=== PATIENT | female | born 1975 | race Caucasian/White ===

== ENCOUNTER → 2016-07-13 | Outpatient (CLI) | payer OTHER ==
[2014-10-04 10:55] VITALS: BP 138/87
[~2016-07-13] MED LIST: AMLO10TA4 PO; CITA20TA5 PO; DOCU-150 PO; OXYC-323 PO; PHEN37.598 PO
--- NOTE | 2016-07-13 11:56 | RAD ---
DATE: 07/13/2016 EXAM: MAMMO KRISTIN SCREENING BILATERAL HISTORY: Screening COMPARISON: None. This is a baseline study This study was interpreted with the benefit of Computerized Aided Detection (CAD). FINDINGS: Breast Density: SCATTERED The breast parenchyma shows scattered fibroglandular densities. Breast parenchyma level B. There is a slightly lobulated 1 cm mass at the 12:00 position of the right breast. Targeted ultrasound is advised. A smaller well-defined mass is seen in the upper outer aspect of the right breast most compatible with intramammary lymph node. In the left breast there is a well-defined small approximately 4 mm nodule centrally in the breast. [facility]one compression imaging rolled cc views and an ML view are advised. Targeted ultrasound is also suggested. IMPRESSION: 1 cm nodule in the right breast. Targeted ultrasound advised. In the left breast there is a suggested nodule centrally in the breast. Additional imaging and targeted ultrasound advised as outlined above BI-RADS CATEGORY: 0 INCOMPLETE: NEED ADDITIONAL IMAGING EVAULATION AND/OR PRIOR MAMMOGRAMS FOR COMPARISON RECOMMENDED FOLLOW-UP: ADD ADDITIONAL IMAGING PQRS compliance statement: Patient information was entered into a reminder system with a target due date soon for the next mammogram. Mammography is a sensitive method for finding small breast cancers, but it does not detect them all and is not a substitute for careful clinical examination. A negative mammogram does not negate a clinically suspicious finding and should not result in delay in biopsying a clinically suspicious abnormality. "Our facility is accredited by the [employer] Mammography Program."
== END | disposition home or self-care (01) ==
LOC: MAMMO 09:42
PROVIDERS: ATTEND Nurse Practitioner Family
DX: Z12.31 Encounter for screening mammogram for malignant neoplasm of breast (principal); N63 Unspecified lump in breast
CPT/HCPCS: 77063; G0202; 77067

== ENCOUNTER → 2016-07-17 | Outpatient (CLI) | payer OTHER ==
[2014-10-04 10:55] VITALS: BP 138/87
--- NOTE | 2016-07-17 13:23 | RAD ---
DATE: 07/17/2016 EXAM: DIGITAL DIAGNOSTIC LT, BREAST BILATERAL HISTORY: Suspicious screening study COMPARISON: 07/13/2016 This study was interpreted with the benefit of Computerized Aided Detection (CAD). The breast parenchyma shows scattered fibroglandular densities. Breast parenchyma level B. FINDINGS: Additional views of the left breast confirm the presence of a small 8 mm nodule in the left breast located just medial and superior to the midline at the 9-10:00 location. Its margins are fairly smooth as best delineated on the tomograms from the 07/13/2016 study. No microcalcifications are seen. Bilateral breast ultrasound, 07/17/2016: A targeted ultrasound exam of the right breast was performed at the 11-12 o'clock location at the site where a nodule was noted on the screening mammograms. With some difficulty we were able to demonstrate an oval-shaped smooth nodule at the 11:00 location approximately 3 cm from the nipple. It contains a small hypoechoic component as well as a component of minimal echogenicity in a somewhat spongiform pattern. The nodule measures approximately 8 x 4 x 4 mm. This probably corresponds to the mammographic abnormality. A targeted ultrasound exam of the left breast was performed from the o'clock to 11:00 levels. The nodule seen on the mammograms could not be visualized sonographically. IMPRESSION: 1. Small complex nodule at the 11:00 location in the right breast. Ultrasound-guided biopsy is suggested for further evaluation. 2. A small smooth mammographically detected nodule at the 9-10:00 location in the left breast could not be visualized sonographically. Mammographic surveillance beginning in 6 months is suggested. Breast MR could also be considered for further characterization of these nodules. Note: The patient was notified of these findings at the time of the exam and is aware of the recommendation for biopsy on the right. She will follow up with the ordering provider. BI-RADS CATEGORY: 4 SUSPICIOUS ABNORMALITY- BIOPSY SHOULD BE CONSIDERED RECOMMENDED FOLLOW-UP: BIO BIOPSY RECOMMENDED PQRS compliance statement: Patient information was entered into a reminder system with a target due date for the next mammogram. Mammography is a sensitive method for finding small breast cancers, but it does not detect them all and is not a substitute for careful clinical examination. A negative mammogram does not negate a clinically suspicious finding and should not result in delay in biopsying a clinically suspicious abnormality. "Our facility is accredited by the [employer] Mammography Program."
== END | disposition home or self-care (01) ==
LOC: US 10:02
PROVIDERS: ATTEND Nurse Practitioner Family
DX: N63 Unspecified lump in breast (principal)
CPT/HCPCS: 76641; G0206; 77065

== ENCOUNTER → 2018-08-22 | Outpatient (CLI) | payer BC, OTHER ==
[2014-10-04 10:55] VITALS: BP 138/87
[~2018-08-22] MED LIST changes: -CITA20TA5 PO; +CITA20TA6 PO; -OXYC-323 PO; +OXYC1TAB15 PO
--- NOTE | 2018-08-22 08:55 | RAD ---
Indication:Menorrhagia. TECHNIQUE: Grayscale, color Doppler and spectral waveform images of the pelvis obtained. COMPARISON: None FINDINGS: The uterus is anteverted and measures 7.5 x 3.7 x 4.4 cm (longitudinal, AP, transverse). Endometrial stripe measures 1 cm in thickness without vascularity. Cervix is within normal limits with nabothian cyst. Left ovary measures 2.8 x 2.1 x 1.6 cm with couple follicles and demonstrates evidence of blood flow. Right ovary measures 3.0 x 2.9 x 2.0 cm and shows blood flow. No free pelvic fluid. IMPRESSION: Bilateral ovaries show evidence of blood flow. Endometrial stripe measures 1 cm in thickness. Electronically signed by: Anjum Julien DO (08/22/2018 8:51 AM) [facility]
--- NOTE | 2018-08-22 11:42 | RAD ---
History: Routine Screening. Technique: Bilateral digital mammographic routine views were obtained with CAD - computer aided detection. Comparison: Previous mammogram from 2017.. Findings: Breast Tissue Density B : There are scattered areas of fibroglandular densities.. 5 mm asymmetry in the 5:00 position in the right breast approximately 4 cm from the nipple on cc view. 6 mm asymmetry in the right breast at 6-7:00 position approximately 6.5 cm from the nipple on cc view. 1 cm asymmetry along the posterior nipple line in the left breast best seen on MLO view approximately 4 cm from the nipple. Impression: Bilateral asymmetries as described above. BI-RADS Category 0: Incomplete. Spot compression views of the bilateral breasts at the locations described above. . A mammogram does not have 100% sensitivity and therefore a negative imaging study should not delay further work up of a suspicious abnormality. The patient will receive a letter with the results in the mail. Patient information is entered into the reminder system with a target due date for the next screening mammogram. The patient will receive a reminder. "Our facility is accredited by the [employer] Mammography Program."
== END | disposition home or self-care (01) ==
LOC: US 08:03
PROVIDERS: ATTEND Obstetrics & Gynecology
DX: Z12.31 Encounter for screening mammogram for malignant neoplasm of breast (principal); N88.8 Other specified noninflammatory disorders of cervix uteri; N64.89 Other specified disorders of breast
CPT/HCPCS: 76830; 76856; 77063; 77067

== ENCOUNTER → 2018-08-31 | Outpatient (CLI) | payer BC ==
[2014-10-04 10:55] VITALS: BP 138/87
--- NOTE | 2018-09-02 14:16 | RAD ---
DATE: 08/31/2018 2:00 PM EXAM: DIGITAL DIAGNOSTIC BILATERAL, BREAST BILATERAL HISTORY: further evaluation of a finding noted on her most recent screening mammographic examination. On that examination an asymmetry was reported within the bilateral breasts COMPARISON: 08/22/2018, 07/17/2016, 07/13/2016 Spot compression views of both breasts were obtained. FINDINGS: Breast Density: FATTY The Breast Parenchyma is primarily fatty replaced. Breast parenchyma level density A. Spot compression views of both breasts were obtained. The previously seen asymmetries are less conspicuous but in general are again seen. Therefore these were further evaluated with ultrasound. ULTRASOUND FINDINGS: Targeted ultrasound of the mammographic area of concern was performed in the bilateral breasts. 7:00 position, 6 cm from the right nipple: A hypoechoic mass of circumscribed margins and round/oval shape is present, measuring 0.5 x 0.2 x 0.6 cm. This demonstrates internal homogenous echogenicity. 2:00 position, 3 cm from the nipple: A hypoechoic mass of circumscribed margins and round/oval shape is present, measuring 0.5 x 0.7 x 0.3 cm. This demonstrates internal homogenous echogenicity. 5:00 position, 3 cm from the nipple: An anechoic avascular mass of circumscribed margins and round/oval shape is present. It demonstrates posterior acoustic enhancement and a parallel orientation. It measures 0.3 x 0.1 x 0.2 cm 10:00 position, 4 cm from the nipple: An anechoic avascular mass of circumscribed margins and round/oval shape is present. It demonstrates posterior acoustic enhancement and a parallel orientation. It measures 0.2 x 0.3 x 0.2 cm. IMPRESSION: Bilateral breast asymmetry with likely sonographic correlates as above corresponding to complicated cysts and solid masses as above. BI-RADS CATEGORY: 3 PROBABLY BENIGN FINDING(S)-SHORT INTERVAL FOLLOW-UP SUGGESTED RECOMMENDED FOLLOW-UP: 6M 6 MONTH FOLLOW-UP to including diagnostic mammography and ultrasound. PQRS compliance statement: Patient information was entered into a reminder system with a target due date for the next mammogram. Mammography is a sensitive method for finding small breast cancers, but it does not detect them all and is not a substitute for careful clinical examination. A negative mammogram does not negate a clinically suspicious finding and should not result in delay in biopsying a clinically suspicious abnormality. "Our facility is accredited by the [employer] Mammography Program."
== END | disposition home or self-care (01) ==
LOC: MAMMO 14:05
PROVIDERS: ATTEND Physician Assistant
DX: N64.89 Other specified disorders of breast (principal)
CPT/HCPCS: 76641; 77066

== ENCOUNTER 2019-05-20 17:07 | Emergency (ER) | payer BC ==
[~2019-05-20] VITALS: Ht 167.6 cm; Wt 90.0 kg
[2019-05-20 17:16] VITALS: BP 140/96
[2019-05-20] MEDS ORDERED: DIPH,PERTUSS(ACELL),TET VAC/PF 0.5 ML SYRINGE. VAX IM ONE (17:30)
[2019-05-20] MEDS ORDERED: CEPH-264 PO (17:33)
--- NOTE | 2019-05-20 17:34 | PHYS DOC ---
Past History Past Medical History: Depression, Hypertension Past Surgical History: No Surgical History Alcohol Use: Occasionally General Adult EDM: Chief Complaint: PUNCTURE WOUND HPI: HPI: 44-year-old female presents with puncture wound in her right foot. The patient was out in her backyard fixing a piece of fence that fell down. She stepped on a nail that was on the ground. She immediately jumped off of it and it came out of her foot. She had a little bit of bleeding, but there was a visible puncture michaela. She is unsure exactly how deep it went. It is mildly tender at this time. She denies any other injuries or complaints. She knows that her tetanus is out of date. The patient is allergic to penicillins and Omnicef, but has taken Keflex without difficulty. Review of Systems: Review of Systems: Constitutional: Denies fever or chills Eyes: Denies change in visual acuity HENT: Denies nasal congestion or sore throat Respiratory: Denies cough or shortness of breath Cardiovascular: Denies chest pain or edema GI: Denies abdominal pain, nausea, vomiting, bloody stools or diarrhea : Denies dysuria Musculoskeletal: Denies back pain or joint pain Integument: Puncture wound bottom right foot Neurologic: Denies headache, focal weakness or sensory changes Endocrine: Denies polyuria or polydipsia Lymphatic: Denies swollen glands Psychiatric: Denies depression or anxiety Heart Score: Risk Factors: Risk Factors: DM, Current or recent (<one month) smoker, HTN, HLP, family history of CAD, obesity. Risk Scores: Score 0 - 3: 2.5% MACE over next 6 weeks - Discharge Home Score 4 - 6: 20.3% MACE over next 6 weeks - Admit for Clinical Observation Score 7 - 10: 72.7% MACE over next 6 weeks - Early Invasive Strategies Current Medications: Current Meds: Current Medications Medications (Trade) Dose Ordered Sig/[place] Start Time Stop Time Status Last Admin Dose Admin Diphtheria/ Pertussis/Tetanus Vacc (ADACEL TDap SYRINGE) 0.5 ml ONCE ONCE 05/20/19 17:30 05/20/19 17:31 Allergies: Allergies: Allergies Coded Allergies Type Severity Reaction Last Updated Verified Penicillins Allergy Intermediate Rash 10/02/14 Yes cefdinir Allergy Intermediate Rash 10/02/14 Yes clindamycin Allergy Intermediate Rash 10/02/14 Yes acetaminophen Allergy Unknown 05/20/19 Yes oxycodone Allergy Unknown 05/20/19 Yes Physical Exam: PE: Constitutional: Well developed, well nourished, no acute distress, non-toxic appearance. [] HENT: Normocephalic, atraumatic, bilateral external ears normal, oropharynx moist, no oral exudates, nose normal. [] Eyes: PERRLA, EOMI, conjunctiva normal, no discharge. [] Neck: Normal range of motion, no tenderness, supple, no stridor. [] Cardiovascular:Heart rate regular rhythm, no murmur [] Lungs & Thorax: Bilateral breath sounds clear to auscultation [] Abdomen: Bowel sounds normal, soft, no tenderness, no masses, no pulsatile masses. [] Skin: Small puncture wound in the plantar surface of the right foot, no active bleeding. [] Back: No tenderness, no CVA tenderness. [] Extremities: No tenderness, no cyanosis, no clubbing, ROM intact, no edema. [] Neurologic: Alert and oriented X 3, normal motor function, normal sensory function, no focal deficits noted. [] Psychologic: Affect normal, judgement normal, mood normal. [] Current Patient Data: Vital Signs: Vital Signs Date Time Temp Pulse Resp B/P (MAP) Pulse Ox O2 Delivery O2 Flow Rate FiO2 05/20/19 17:16 97.0 89 18 140/96 (111) 100 Room Air EKG: EKG: [] Radiology/Procedures: Radiology/Procedures: [] Course & Med Decision Making: Course & Med Decision Making Pertinent Labs and Imaging studies reviewed. (See chart for details) The patient's exam showed a small puncture wound and there was no palpable foreign body. It seems unlikely that there would be a foreign body. We have updated her tetanus in the ED. I will put her on Keflex prophylaxis for 5 days. She is stable for discharge at this time. [] Dragon Disclaimer: Ben Disclaimer: This electronic medical record was generated, in whole or in part, using a voice recognition dictation system. Departure Departure: Impression: Primary Impression: Puncture wound of right foot Qualified Codes: S91.331A - Puncture wound without foreign body, right foot, initial encounter Disposition: HOME, SELF-CARE Condition: STABLE Referrals: JIMBO CLAYTON (PCP) Patient Instructions: Puncture Wound, Cniu-cf-Kexi Scripts Cephalexin (KEFLEX) 500 Mg Capsule 1 CAP PO BID for infection prophylaxis for 5 Days, #10 CAP 0 Refills Prov: TAMI OLIVEIRA DO 05/20/19 TAMI OLIVEIRA DO May 20, 2019 17:34
== END 2019-05-20 17:45 | disposition home or self-care (01) ==
LOC: ER 17:07
DX: S91.331A Puncture wound without foreign body, right foot, initial encounter (principal); I10 Essential (primary) hypertension; Z88.0 Allergy status to penicillin; Z88.1 Allergy status to other antibiotic agents; Z88.5 Allergy status to narcotic agent; Z88.8 Allergy status to other drugs, medicaments and biological substances; W22.8XXA Striking against or struck by other objects, initial encounter; Y93.89 Activity, other specified; Y92.89 Other specified places as the place of occurrence of the external cause; Y99.8 Other external cause status
CPT/HCPCS: 90471; 90715; 99283-25

== ENCOUNTER → 2020-04-17 | Outpatient (CLI) | payer BC ==
[~2020-04-17] MED LIST changes: +CEPH-264 PO
--- NOTE | 2020-04-17 10:05 | RAD ---
EXAM: Abdomen sonogram. HISTORY: Pain. TECHNIQUE: Sonographic imaging of the abdomen was performed. COMPARISON: None. FINDINGS: The liver is normal in size. No focal hepatic lesion is seen. The common bile duct is lashay l in caliber. The gallbladder is unremarkable. The right kidney is unremarkable. The pancreatic tail is partially obscured due to bowel gas. The inferior vena cava is patent. IMPRESSION: No acute sonographic finding. Electronically signed by: Leslie Abreu MD (04/17/2020 10:03 AM) [id number]
== END ==
LOC: US 09:07
PROVIDERS: ATTEND Physician Assistant
DX: R10.11 Right upper quadrant pain (principal)
CPT/HCPCS: 76705

== ENCOUNTER → 2020-05-10 | Outpatient (CLI) | payer BC ==
--- NOTE | 2020-05-10 14:22 | RAD ---
PROCEDURE: MG BILAT SCREEN+KRISTIN HISTORY: The patient is 45 years old and is seen for Reason: SCREENING / Spl. Instructions: / Histor y: . COMPARISON: August 22, 2018 and August 31, 2018 TECHNIQUE: CC and MLO views of both breasts were obtained. Images were processed by the [employer] computer-aided detection system. DENSITY: There are scattered fibroglandular densities. FINDINGS: Left breast: Slightly increased left medial breast well-circumscribed mass measures 1.6 x 0.3 cm 10:00 position. No pathologic calcifications. Right breast: Unchanged right upper outer breast mass, likely intramammary lymph node. Decreased righ t inferior breast mass compared to prior. IMPRESSION: Slightly increased left breast well-circumscribed mass. Recommend ultrasound to further assess. Recommend left breast ultrasound. BI-RADS category 0 Incomplete: Needs additional imaging evaluation Patient entered into a reminder system for annual screening mammogram. Electronically signed by: Dwayne Flanagan DO (05/10/2020 2:19 PM) [id number]
== END ==
LOC: MAMMO 11:12
PROVIDERS: ATTEND Physician Assistant
DX: Z12.31 Encounter for screening mammogram for malignant neoplasm of breast (principal)
CPT/HCPCS: 77063; 77067

== ENCOUNTER → 2020-05-20 | Outpatient (CLI) | payer BC ==
--- NOTE | 2020-05-21 15:24 | RAD ---
DATE: 05/20/2020 EXAM: BREAST LEFT HISTORY: Recall from screening mammogram for left breast mass COMPARISON: Mammogram 05/10/2020. Bilateral breast ultrasound 08/31/2018 and 07/17/2016 TECHNIQUE: The upper inner left breast was imaged. FINDINGS: There is no abnormality in the left breast at 10:00, 7 cm from the nipple at the area of mammographic abnormality. A small circumscribed oval hypoechoic lesion measuring 4 mm at 10:00, 3 cm from the nipple is unchanged ultrasound 08/31/2018. An additional circumscribed oval hypoechoic lesion at 11:00 2 cm the nipple measuring 5 mm likely corresponds to a similar appearing lesion seen on 07/17/2016 but has decreased in size. No suspicious mass. IMPRESSION: 1. No definite sonographic abnormality to correlate with the finding on mammogram. 2. There are 2 circumscribed hypoechoic masses at 10 and 11:00 3 to 4 cm from the nipple, likely corresponding with lesions seen in 2018 and 2016. Given the stability over time, these are considered benign. BI-RADS CATEGORY: 2 BENIGN FINDING(S) RECOMMENDED FOLLOW-UP: 12M 12 MONTH FOLLOW-UP PQRS compliance statement: Patient information was entered into a reminder system with a target due date for the next mammogram. Mammography is a sensitive method for finding small breast cancers, but it does not detect them all and is not a substitute for careful clinical examination. A negative mammogram does not negate a clinically suspicious finding and should not result in delay in biopsying a clinically suspicious abnormality. "Our facility is accredited by the [employer] Mammography Program."
== END ==
LOC: US 13:34
PROVIDERS: ATTEND Physician Assistant
DX: R92.8 Other abnormal and inconclusive findings on diagnostic imaging of breast (principal); N63.22 Unspecified lump in the left breast, upper inner quadrant
CPT/HCPCS: 76641